=== PATIENT | female | born 1950 | race Two or more races ===

== ENCOUNTER 2017-03-14 04:41 | Inpatient (IN) | payer MEDICARE, MEDICAID ==
[~2017-03-14] VITALS: Ht 172.7 cm; Wt 99.3 kg
[2017-03-14] VITALS (7 sets, daily range): BP systolic 120–146; BP diastolic 63–98
[~2017-03-14 04:41] MED LIST: ASPI-991 PO; BACL10TA PO; CLON0.5T4 PO; CLOT15CR63 TP; DIPH1TAB70 PO; DIPH25CA6 PO; HYDR28.32 TP; HYDR2TAB35 PO; ISOS10TA8 PO; LOPE2CAP PO; LORA0.5T PO; MELO-270 PO; METH4TAB16 PO; METO25TA6 PO; ONDA4TAB11 PO; OXYC1TAB72 PO; TEMA30CA PO; TRAZ-147 PO; VITA56.7 TP; [UNRECOGNIZED DRUG - CODE] PO
--- NOTE | 2017-03-14 04:50 | NUR ---
RN OPEN NOTES RECEIVED PATIENT FROM [facility], [facility] EMT VIA [employer]. A/O X4. NO SIGNS OF DISTRESS OR DISCOMFORT. BREATHING EVEN AND UNLABORED. IV ACCESS IN LEFT WRIST. PATENT AND INTACT. NO SIGNS OF REDNESS OR INFILTRATION. PATIENT COMPLAINS OF PAIN IN NECK 07/02. ORIENTED PATIENT TO UNIT AND ROOM. BED IN LOW LOCKED POSITION WITH SIDE RAILS X2. CALL LIGHT WITHIN REACH. WILL CONTINUE TO MONITOR.
[2017-03-14] MEDS ORDERED: ONDANSETRON HCL/PF 4 MG/2 ML VIAL IVP PRN (05:30)
[2017-03-14] MEDS ORDERED: MAGNESIUM HYDROXIDE 30 ML UDC PO PRN (05:30)
[2017-03-14] MEDS ORDERED: HYDROMORPHONE INJ 2 MG/ML DISP.SYRIN IV PRN (05:30)
[2017-03-14] MEDS ORDERED: ACETAMINOPHEN 325 MG TABLET PO PRN (05:30)
[2017-03-14] MEDS ORDERED: ZOLPIDEM TARTRATE 5 MG TABLET PO PRN (05:30)
[2017-03-14] MEDS ORDERED: MAG HYDROX/AL HYDROX/SIMETH 30 ML UDC PO PRN (05:30)
[2017-03-14] MEDS ORDERED: METO-306 PO (05:50)
[2017-03-14] MEDS ORDERED: DOCU-170 PO (05:50)
[2017-03-14] MEDS ORDERED: ESCI10TA PO (05:50)
[2017-03-14] MEDS ORDERED: RIVA10TA PO (05:50)
[2017-03-14] MEDS ORDERED: HYDR-3026 PO (05:50)
[2017-03-14] MEDS ORDERED: HYDROMORPHONE 1 MG/1 ML DISP.SYRIN ONE (05:53)
[2017-03-14] MEDS ORDERED: TRAZ150T75 PO (05:53)
[2017-03-14] MEDS ORDERED: ISOS10TA2 PO (05:53)
[2017-03-14] MEDS ORDERED: HYDROMORPHONE INJ 2 MG/ML DISP.SYRIN ONE (06:09)
--- NOTE | 2017-03-14 06:13 | NUR ---
RN NOTES ADMINISTERED DILAUDID 1MG PRN ORDERED FOR PAIN 8/10 IN NECK AND CHEST. WILL CONTINUE TO MONITOR.
--- NOTE | 2017-03-14 07:22 | NUR ---
RN OPEN NOTES PATIENT RESTING IN BED, EASILY AROUSABLE TO NAME. A/O X4. NO SIGNS OF DISTRESS OR DISCOMFORT. BREATHING EVEN AND UNLABORED. IV ACCESS IN LEFT WRIST. PATENT AND INTACT. NO SIGNS OF REDNESS OR INFILTRATION. PATIENT COMPLAINS OF PAIN IN NECK 07/02 DESPITE BEING GIVEN DILAUDID. ALL NEEDS MET. NO SIGNIFICANT CHANGES. BED IN LOW LOCKED POSITION WITH SIDE RAILS X2. CALL LIGHT WITHIN REACH. ENDORSED TO AM SHIFT FOR NORA.
--- NOTE | 2017-03-14 07:30 | NUR ---
initial note sleeping in bed, arouses easily. a+o x4. verbalizes needs. breathing and LOC wnl. 8/10 back, chest and neck pain. denies dizziness. states is able to ambulate with walker. states has cough x1 year. denies constipation- continent of bowels, incontinent of bladder. L wrist iv patent, dressing cdi. repositioned. discussed plan of care, educated on narcotic use, plan to admin nitro. verbalized understanding. call light in reach.
[2017-03-14 08:00] LABS: TROPONIN I < 0.017 ng/mL (0.00-0.056)
[2017-03-14 08:55] LABS: CHOLESTEROL 172 mg/dL (<200); HDL CHOLESTEROL 42 mg/dL (40-60); LDL 110 mg/dL (0-99); TRIGLYCERIDES 90 mg/dL (30-150)
[2017-03-14] MEDS: NITROGLYCERIN 0.4 MG/TAB BOTTLE SL PRN ×2 (08:58→20:45)
[2017-03-14] MEDS: CARVEDILOL 3.125 MG TABLET PO SCH ×2 (08:59→21:38)
[2017-03-14] MEDS: PANTOPRAZOLE 40 MG TABLET.DR PO SCH (08:59)
[2017-03-14 09:05] LABS: MAGNESIUM 1.7 mg/dL (1.8-2.4); PHOSPHORUS 3.4 mg/dL (2.5-4.9)
[2017-03-14] MEDS ORDERED: ASPIRIN 325 MG TABLET PO SCH (10:32)
--- NOTE | 2017-03-14 10:58 | NUR ---
verbal order per dr. johansen for tessalon perles 100mg tid prn cough
[2017-03-14] MEDS ORDERED: LOPERAMIDE HCL (2 MG CAP) 2 MG CAPSULE PO PRN (11:00)
[2017-03-14] MEDS ORDERED: DIPHENOXYLATE HCL/ATROP SULF 1 UDTAB TABLET PO PRN (11:00)
[2017-03-14] MEDS: HYDROMORPHONE HCL 2 MG TABLET PO PRN ×2 (11:53→19:02)
[2017-03-14] MEDS: ISOSORBIDE DINITRATE (10MG) 10 MG TABLET PO SCH ×2 (12:15→16:24)
[2017-03-14] MEDS ORDERED: hydrOXYzine PAMOATE 25 MG CAPSULE PO PRN (13:00)
[2017-03-14] MEDS ORDERED: ISOSORBIDE MONONITRATE 10 MG PO SCH (13:00)
[2017-03-14 14:03] LABS: BASOPHILS % (AUTO) 0.5 % (0.0-2.0); EOSINOPHILS # (AUTO) 0.5 /CMM (0.0-0.7); EOSINOPHILS % (AUTO) 6.9 % (0.0-6.0); HEMATOCRIT 45 % (33-45); HEMOGLOBIN 14.4 g/dL (11.5-14.8); LYMPHOCYTES % (AUTO) 26.6 % (20.0-44.0); MEAN CORPUSCULAR HEMOGLOBIN 29 PG (26.0-33.0); MEAN CORPUSCULAR HGB CONC 32 g/dl (31.0-36.0); MEAN CORPUSCULAR VOLUME 90 fL (82-100); MONOCYTES # (AUTO) 1.2 /CMM (0.1-1.30); MONOCYTES % (AUTO) 15.7 % (2.0-12.0); NEUTROPHILS # (AUTO) 3.7 /CMM (1.8-8.9); NEUTROPHILS % (AUTO) 50.3 % (43.0-81.0); PLATELET COUNT (AUTO) 227 /CMM (150-450); RDW COEFFICIENT OF VARIATION 14.5 (11.5-15.0); RED BLOOD CELL COUNT(AUTO) 4.94 MIL/uL (4.0-5.2); WHITE BLOOD COUNT (AUTO) 7.4 K/uL (4.3-11.0)
[2017-03-14 14:22] LABS: ALBUMIN 2.9 g/dL (3.4-5.0); BILIRUBIN,TOTAL 0.4 mg/dL (0.2-1.0); CALCIUM, SERUM 9.1 mg/dL (8.5-10.1); CREATININE 0.7 mg/dL (0.6-1.3); TOTAL PROTEIN, SERUM 7.4 g/dL (6.4-8.2)
[2017-03-14 15:08] LABS: ANISOCYTOSIS 1+; EOSINOPHILS % (MANUAL) 4 % (0-4); LYMPHOCYTES % (MANUAL) 23 % (16-48); MONOCYTES % (MANUAL) 13 % (0-11.0); NEUTROPHILS % (MANUAL) 55 (42-76); PLATELET ESTIMATE ADEQU; REACTIVE LYMPHOCYTES 5 % (0-0)
[2017-03-14 15:08] LABS: PROTHROMBIN TIME 10.7 SECS (9.5-12.7)
[2017-03-14] MEDS: BENZONATATE 100 MG CAPSULE PO PRN (15:09)
[2017-03-14] MEDS ORDERED: SECONDARY IV SET 1 EA INFUS.SET MC ONE (16:18)
[2017-03-14] MEDS: BACLOFEN (10 MG) 10 MG TABLET PO SCH (16:24)
[2017-03-14] MEDS: Magnesium 1GM/D5W 100ML PREMIX 100 ML IV SCH ×2 (16:24→17:54)
[2017-03-14] MEDS: VITAMINS A AND D 56.7 GM TUBE TP SCH (16:25)
[2017-03-14] MEDS: HYDROCORTISONE 1% CREAM 28.35 GM TUBE TP SCH (16:25)
[2017-03-14] MEDS ORDERED: IV SET PRIMARY PUMP SET 1 EA INFUS.SET MC ONE (16:26)
--- NOTE | 2017-03-14 19:30 | NUR ---
FIELD IRRIGATION WORKER OPENING NOTES: PATIENT IN BED, AOX4, ON ROOM AIR, BREATHING EVEN AND UNLABORED. BREATH SOUNDS CLEAR TO AUSCULTATION. APPEARS CALM AND IN NO DISTRESS, HOWEVER, STATES THAT SHE HAS 8/10 PAIN OVER HER CHEST DESCRIBED HEAVINESS, AND ADDS THAT SHE ALSO HAS PAIN OVER HER NECK, SAYING "IT'S THE HERNIATED DISC". PATIENT WITH GOOD COLOR, SKIN WARM AND DRY. ON CONT TELE MONITORING WITH AFIB AT RATE OF 80S. REASSURED PATIENT. PATIENT'S HOB MAINTAINED ELEVATED. PIV AT R WRIST G22 INTACT AND PATENT, INFUSING NOW WITH MAGNESIUM IV. PROVIDED FOR COMFORT AND SAFETY. BED IN LOWEST AND LOCKED POSITION, SIDERAILS UP X3, CALL LIGHT WITHIN REACH. WILL CONT TO MONITOR.
--- NOTE | 2017-03-14 19:31 | NUR ---
closing note patient stable at end of shift. LOC and breathing wnl. verbalizes needs. no adverse effect of medication noted this shift. adl care rendered frequently. call light in reach
--- NOTE | 2017-03-14 20:55 | NUR ---
RN NOTES: PATIENT COMPLAINED OF CHEST PAIN RATED AT 8/10, MIDSTERNAL, PER PATIENT, IT FELT LIKE HEAVINESS. PATIENT IS SHOWING SR WITH AFIB IN MONITOR AT RATE OF 87. ADMINISTERED NTG 0.4 MG SL. INSTRUCTED PATIENT NOT TO GET OUT OF BED, IT CAN CAUSE DIZZINESS AND DECREASE IN BP. PATIENT VERBALIZED UNDERSTANDING. ALSO ASKING FOR MEDICATION FOR ITCHING. HOWEVER, VISTARIL HAS JUST BEEN GIVEN AT 1754 PM. WILL PAGE MD FOR ORDERS.
--- NOTE | 2017-03-14 21:20 | NUR ---
RN NOTES: SPOKE TO [facility] BLOCKER AND POLISHER, SHAYY KELLY NP, REGARDING PATIENT'S REQUEST FOR VISTARIL. PER PULP MAKING PLANT OPERATOR, DC VISTARIL AND ORDER FOR DIPHENHYDRAMINE 25 MG PO Q 6 HRS PRN FOR ITCHING. ORDER NOTED AND CARRIED OUT. WILL CONT TO MONITOR.
[2017-03-14] MEDS: DOCUSATE SODIUM 100 MG CAPSULE PO SCH (21:38)
[2017-03-14] MEDS: TRAZODONE 50 MG TABLET PO SCH (21:39)
--- NOTE | 2017-03-14 21:44 | NUR ---
RN NOTES: PATIENT IN BED, STATES THAT CHEST PAIN HAS DECREASED, SCALED AT 7/10. RECHECKED BP AT 122/76, HR AT 93. PATIENT STILL ASKING FOR VALIUM. WILL CHECK WITH MD.
[2017-03-14] MEDS ORDERED: diphenhydrAMINE HCL 25 MG CAPSULE ONE (21:58)
[2017-03-14] MEDS: diphenhydrAMINE HCL 25 MG CAPSULE PO PRN (22:03)
[2017-03-14] MEDS: clonazePAM 0.5 MG TABLET PO PRN (22:45)
[2017-03-15] VITALS (9 sets, daily range): BP systolic 95–144; BP diastolic 58–77
[2017-03-15] MEDS: clonazePAM 0.5 MG TABLET PO PRN ×2 (06:18→13:33)
--- NOTE | 2017-03-15 07:13 | NUR ---
SILK SCREEN PRINTER CLOSING NOTES: PATIENT IN BED, AOX4, ON ROOM AIR, BREATHING EVEN AND UNLABORED. DENIES ANY PAIN / CHEST PAIN AT THIS TIME. ON TELE MONITORING WITH AFIB AT RATE OF 90S. PIV OVER R WRIST G22 INTACT AND PATENT TO FLUSH. PROVIDED FOR COMFORT AND SAFETY. NO ACUTE CHANGE IN CONDITION NOTED THROUGH SHIFT. PATIENT WAS ABLE TO SLEEP THROUGH NIGHT. WILL ENDORSE TO AM RN FOR NORA.
--- NOTE | 2017-03-15 07:15 | NUR ---
TELE/RN AM NOTES RECEIVED PATIENT IN BED, ALERT, ORIENTED, ABLE TO MAKE NEEDS KNOWN. DENIES CHEST PAIN, ON ROOM AIR, BREATHING EVEN, UNLABORED. NO DISTRESS. ATTACHED TO TELE MONITORING WITH AFIB, HR 97. PATIENT'S HOB ELEVATED HIGH FOWLERS. IV LINE ON RIGHT WRIST G22 INTACT AND PATENT. NEEDS ANTICIPATED, BED IN LOW POSITION, 2 SR UP FOR SAFETY. CALL LIGHT WITHIN REACH. WILL CONTINUE TO MONITOR ACCORDINGLY
[2017-03-15 08:12] LABS: BASOPHILS % (AUTO) 0.5 % (0.0-2.0); EOSINOPHILS # (AUTO) 0.5 /CMM (0.0-0.7); EOSINOPHILS % (AUTO) 6.5 % (0.0-6.0); HEMATOCRIT 43 % (33-45); HEMOGLOBIN 14.1 g/dL (11.5-14.8); LYMPHOCYTES # (AUTO) 1.7 /CMM (0.8-4.8); LYMPHOCYTES % (AUTO) 21.5 % (20.0-44.0); MEAN CORPUSCULAR HEMOGLOBIN 29 PG (26.0-33.0); MEAN CORPUSCULAR HGB CONC 33 g/dl (31.0-36.0); MEAN CORPUSCULAR VOLUME 90 fL (82-100); MONOCYTES % (AUTO) 12.6 % (2.0-12.0); NEUTROPHILS # (AUTO) 4.7 /CMM (1.8-8.9); NEUTROPHILS % (AUTO) 58.9 % (43.0-81.0); PLATELET COUNT (AUTO) 243 /CMM (150-450); RDW COEFFICIENT OF VARIATION 14.6 (11.5-15.0); RED BLOOD CELL COUNT(AUTO) 4.78 MIL/uL (4.0-5.2)
[2017-03-15 08:31] LABS: CALCIUM, SERUM 8.9 mg/dL (8.5-10.1); CREATININE 0.6 mg/dL (0.6-1.3); MAGNESIUM 2.2 mg/dL (1.8-2.4); POTASSIUM 4.6 mmol/L (3.5-5.1)
[2017-03-15] MEDS: BACLOFEN (10 MG) 10 MG TABLET PO SCH ×2 (08:34→17:05)
[2017-03-15] MEDS: ESCITALOPRAM OXALATE (10 MG) 10 MG TABLET PO SCH (08:34)
[2017-03-15] MEDS: RIVAROXABAN 10 MG TABLET PO SCH (08:35)
[2017-03-15] MEDS: ISOSORBIDE DINITRATE (10MG) 10 MG TABLET PO SCH ×3 (08:36→17:00)
[2017-03-15] MEDS: PANTOPRAZOLE 40 MG TABLET.DR PO SCH ×2 (08:36→08:56)
[2017-03-15] MEDS: CARVEDILOL 3.125 MG TABLET PO SCH ×2 (08:37→20:57)
[2017-03-15] MEDS: VITAMINS A AND D 56.7 GM TUBE TP SCH ×2 (08:38→17:07)
[2017-03-15] MEDS: HYDROCORTISONE 1% CREAM 28.35 GM TUBE TP SCH ×2 (08:38→17:07)
[2017-03-15] MEDS: HYDROMORPHONE HCL 2 MG TABLET PO PRN (08:57)
[2017-03-15] MEDS ORDERED: ASPIRIN EC 81 MG TABLET.DR PO SCH (09:00)
[2017-03-15] MEDS: BENZONATATE 100 MG CAPSULE PO PRN (13:33)
--- NOTE | 2017-03-15 15:42 | NUR ---
MS/RN NOTES ORDER RECEIVED OVER THE PHONE FROM DR. RAMIREZ TO START VALIUM 10 MG PO QHS PER PATIENT'S REQUEST. D/C KLONOPIN 0.5 MG PO Q6H PRN. NOTED CARRIED OUT
[2017-03-15] MEDS: oxyCODONE HCL SR 10MG TAB.SR.12H PO SCH (17:16)
--- NOTE | 2017-03-15 19:43 | NUR ---
MS/RN CLOSING NOTES PATIENT IS IN THE BED, AWAKE, NO SOB, DENIES CHEST PAIN. ON RA TOLERATING WELL, 0/10 PAIN. IV LINE RIGHT WRIST INTACT, PATENT. KEPT CLEAN DRY, COMFORTABLE, NEEDS MET IN TIMELY MANNER, WITH CALL LIGHT WITHIN EASY REACH ALL THE TIME. ENDORSED TO THE BOOK SHELVER NURSE ACCORDINGLY FOR NORA.
[2017-03-15] MEDS: GABAPENTIN 300 MG CAPSULE PO SCH (20:56)
[2017-03-15] MEDS: TRAZODONE 50 MG TABLET PO SCH (20:57)
[2017-03-15] MEDS: DOCUSATE SODIUM 100 MG CAPSULE PO SCH (20:57)
[2017-03-15] MEDS: DIAZEPAM 10 MG TABLET PO SCH (22:00)
[2017-03-16] MEDS: DIAZEPAM 10 MG TABLET PO SCH ×2 (00:45→22:11)
[2017-03-16] MEDS: BENZONATATE 100 MG CAPSULE PO PRN (06:20)
[2017-03-16] MEDS: oxyCODONE IR immediate release 5 MG CAPSULE PO PRN ×2 (07:20→16:34)
--- NOTE | 2017-03-16 07:38 | NUR ---
RN OPEN NOTES RECEIVED REPORT FROM EMBEDDED NURSE NURSE. PATIENT IS IN BED ALERT AND ORIENTED TO NAME, TIME AND PLACE. NO SIGNS AND SYMPTOMS OF DISTRESS. WILL CONTINUE TO MONITOR AND ASSESS PATIENT
[2017-03-16 08:00] VITALS: BP 128/85
[2017-03-16 08:09] LABS: BASOPHILS # (AUTO) 0.1 /CMM (0.0-0.2); BASOPHILS % (AUTO) 0.6 % (0.0-2.0); EOSINOPHILS # (AUTO) 0.4 /CMM (0.0-0.7); EOSINOPHILS % (AUTO) 4.5 % (0.0-6.0); HEMATOCRIT 42 % (33-45); HEMOGLOBIN 13.7 g/dL (11.5-14.8); LYMPHOCYTES # (AUTO) 1.7 /CMM (0.8-4.8); LYMPHOCYTES % (AUTO) 19.3 % (20.0-44.0); MEAN CORPUSCULAR HEMOGLOBIN 29 PG (26.0-33.0); MEAN CORPUSCULAR HGB CONC 33 g/dl (31.0-36.0); MEAN CORPUSCULAR VOLUME 91 fL (82-100); MONOCYTES # (AUTO) 1.1 /CMM (0.1-1.30); MONOCYTES % (AUTO) 12.8 % (2.0-12.0); NEUTROPHILS # (AUTO) 5.6 /CMM (1.8-8.9); NEUTROPHILS % (AUTO) 62.8 % (43.0-81.0); PLATELET COUNT (AUTO) 214 /CMM (150-450); RDW COEFFICIENT OF VARIATION 14.1 (11.5-15.0); RED BLOOD CELL COUNT(AUTO) 4.66 MIL/uL (4.0-5.2); WHITE BLOOD COUNT (AUTO) 8.9 K/uL (4.3-11.0)
[2017-03-16 08:24] LABS: CALCIUM, SERUM 8.6 mg/dL (8.5-10.1); CREATININE 0.6 mg/dL (0.6-1.3); POTASSIUM 4.5 mmol/L (3.5-5.1)
[2017-03-16] MEDS: PANTOPRAZOLE 40 MG TABLET.DR PO SCH (08:29)
[2017-03-16] MEDS: oxyCODONE HCL SR 10MG TAB.SR.12H PO SCH ×2 (08:29→21:11)
[2017-03-16] MEDS: BACLOFEN (10 MG) 10 MG TABLET PO SCH ×2 (08:29→16:33)
[2017-03-16] MEDS: RIVAROXABAN 10 MG TABLET PO SCH (08:31)
[2017-03-16] MEDS: CARVEDILOL 3.125 MG TABLET PO SCH ×2 (08:35→21:09)
[2017-03-16] MEDS: HYDROCORTISONE 1% CREAM 28.35 GM TUBE TP SCH ×2 (08:36→16:33)
[2017-03-16] MEDS: VITAMINS A AND D 56.7 GM TUBE TP SCH ×2 (08:36→16:33)
[2017-03-16] MEDS: ISOSORBIDE DINITRATE (10MG) 10 MG TABLET PO SCH ×3 (08:36→16:35)
[2017-03-16] MEDS: ESCITALOPRAM OXALATE (10 MG) 10 MG TABLET PO SCH (08:36)
[2017-03-16] MEDS: diphenhydrAMINE HCL 25 MG CAPSULE PO PRN ×2 (12:25→21:47)
--- NOTE | 2017-03-16 13:00 | NUR ---
HOLD DISCHARGE ORDER TILL 03/17/2017
[2017-03-16 16:00] VITALS: BP 116/77
--- NOTE | 2017-03-16 18:45 | NUR ---
RN CLOSING NOTES PATIENT IS IN BED, ALERT AND ORIENTED TO NAME, TIME AND PLACE. NO SIGNS AND SYMPTOMS OF DISTRESS. DENIED PAIN. POSSIBLE DISCHARGE TOMORROW AM TO [facility]. IV SITE IS INTACT AND POTENT. WILL ENDORSE TO INTERNET TECHNOLOGY MANAGER NURSE
--- NOTE | 2017-03-16 20:00 | NUR ---
MS DENZEL INITIAL NOTES SEEN PT IN BED AFTER GOT REPORT FROM AM NURSE. SHE'S RESTING BUT AROUSES TO TOUCH, BREATHING EVEN AND UNLABORED, NOT IN ANY ACUTE DISTRESS NOTED. KEPT HER WARM AND COMFORTABLE AT ALL TIMES. WILL CONTINUE TO MONITOR. PLACE CALL LIGHT AT REACH.
[2017-03-16 20:16] VITALS: BP 125/63
[2017-03-16 20:20] VITALS: BP 125/63
[2017-03-16] MEDS: DOCUSATE SODIUM 100 MG CAPSULE PO SCH (21:09)
[2017-03-16] MEDS: TRAZODONE 50 MG TABLET PO SCH (21:11)
[2017-03-16] MEDS: GABAPENTIN 300 MG CAPSULE PO SCH (21:12)
--- NOTE | 2017-03-16 22:15 | NUR ---
LAWN SPRINKLER INSTALLER/NOTES ROUTINE MEDS GIVEN , SNACKS ALSO SERVED. KEPT HER WARM AND COMFORTABLE AT ALL TIMES. WILL CONTINUE TO MONITOR. PLACE CALL LIGHT AT REACH.
[2017-03-17] MEDS: BENZONATATE 100 MG CAPSULE PO PRN (05:53)
[2017-03-17] MEDS: diphenhydrAMINE HCL 25 MG CAPSULE PO PRN (05:54)
--- NOTE | 2017-03-17 05:54 | NUR ---
IMPORT EXPORT COORDINATOR/NOTES PT WOKE UP, MORNING CARE RENDERED WELL SKIN TREATMENT. COUGH MEDS GIVEN WELL HER BENADRYL . WILL CONTINUE TO MONITOR.
--- NOTE | 2017-03-17 07:30 | NUR ---
MS VEGETABLE THINNER CLOSING NOTES PT BACK TO REST AFTER COUGH MEDS GIVEN. SLEPT WELL AND STABLE NEHEMIAH THE NIGHT. ALL DUE MEDS GIVEN AND ALL NEEDS MET. KEPT HER WARM AND COMFORTABLE AT ALL TIMES. PLACE CALL LIGHT AT REACH. ENDORSE TO AM NURSE FOR CONTINUITY OF CARE.
--- NOTE | 2017-03-17 07:30 | NUR ---
RECEIVED PT. ALERT AND ORIENTED X4.VS STABLE.NO COMPLAINTS OFFERED. PLANS FOR DC TODAY.
[2017-03-17 08:00] VITALS: BP 157/73
[2017-03-17] MEDS: oxyCODONE HCL SR 10MG TAB.SR.12H PO SCH (08:07)
[2017-03-17] MEDS: PANTOPRAZOLE 40 MG TABLET.DR PO SCH (08:08)
[2017-03-17] MEDS: ESCITALOPRAM OXALATE (10 MG) 10 MG TABLET PO SCH (08:36)
[2017-03-17] MEDS: HYDROCORTISONE 1% CREAM 28.35 GM TUBE TP SCH (08:36)
[2017-03-17] MEDS: VITAMINS A AND D 56.7 GM TUBE TP SCH (08:36)
[2017-03-17] MEDS: RIVAROXABAN 10 MG TABLET PO SCH (08:37)
[2017-03-17] MEDS: ISOSORBIDE DINITRATE (10MG) 10 MG TABLET PO SCH ×2 (08:38→13:37)
[2017-03-17] MEDS: CARVEDILOL 3.125 MG TABLET PO SCH (08:39)
[2017-03-17] MEDS: BACLOFEN (10 MG) 10 MG TABLET PO SCH (08:39)
[2017-03-17] MEDS ORDERED: HYDROMORPHONE HCL 2 MG TABLET PO PRN (11:00)
[2017-03-17] MEDS ORDERED: clonazePAM 0.5 MG TABLET PO PRN (11:00)
--- NOTE | 2017-03-17 11:29 | NUR ---
GIVEN CLONOPIN FOR NERVES.REFUSED DC PHOTOS.
--- NOTE | 2017-03-17 13:14 | NUR ---
ALL PAPERS SIGNED.HEP LOCK OUT. BELONGING SHEET SIGNED.REPORT TO DRIVERS,REPORT CALLED TO FACILITY.SPOKE TO MICHEAL.TRANSPORTED TO FACILITY VIA AMB.
[2017-03-17 13:37] VITALS: BP 130/76
--- NOTE | 2017-03-17 14:00 | NUR ---
SHORTLY AFTER DC FOUND WALKER BEHIND PT,S RM. DOOR,DENIED USE OF WALKER PRIOR TO DC.CALLED FACILITY TO REPORT.
== END 2017-03-17 13:50 | DRG 194 ==
LOC: TELE 04:41 → MED 03-15 13:34
PROVIDERS: ADMIT Nurse Practitioner Acute Care; ATTEND Nurse Practitioner Acute Care
DX: R09.1 Pleurisy (principal); D68.59 Other primary thrombophilia; E66.9 Obesity, unspecified; F32.9 Major depressive disorder, single episode, unspecified; F41.9 Anxiety disorder, unspecified; I25.10 Atherosclerotic heart disease of native coronary artery without angina pectoris; I11.9 Hypertensive heart disease without heart failure; G89.29 Other chronic pain; I48.2 Chronic atrial fibrillation; Z68.33 Body mass index [BMI] 33.0-33.9, adult; Z79.891 Long term (current) use of opiate analgesic; M47.816 Spondylosis without myelopathy or radiculopathy, lumbar region; R53.81 Other malaise
CPT/HCPCS: 36415; 71020-TC; 80048-TC; 80053-TC; 80061-TC; 83735-TC; 84100-TC; 84484-TC; 85025-TC; 85610-TC; 87081-TC; 97001-TC; J1170; J3475; Q0163; Q0177